=== PATIENT | male | born 2000 | race Caucasian/White ===

== ENCOUNTER 2022-10-10 15:23 | Observation (INO) | payer OTHER ==
[2022-10-10] MEDS ORDERED: LORazepam 2 MG/ML INJ IV STA ×2 (17:01→17:14)
[2022-10-10] MEDS ORDERED: SODIUM CHLORIDE 0.9% 1,000 ML IV ONE (17:04)
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
[2022-10-10] MEDS: SODIUM CHLORIDE 0.9% 1,000 ML IV SCH (17:16)
[2022-10-10 17:32] LABS: Basophils % (A) 0 %; Eosinophils # (A) 0.2 k/uL (0-0.7); Eosinophils % (A) 3 %; HCT 44.3 % (39.0-53.0); HGB 14.8 gm/dL (13.0-17.5); Lymphocytes # (A) 1.7 k/uL (1.0-4.8); Lymphocytes % (A) 25 %; MCH 28.8 pg (25.0-35.0); MCHC 33.4 g/dL (31.0-37.0); MCV 86.2 fL (80.0-100.0); Mean Platelet Volume 8.4; Monocytes # (A) 0.5 k/uL (0-1.0); Monocytes % (A) 8 %; Neutrophils # (A) 4.1 k/uL (1.3-7.7); Neutrophils % (A) 63 %; Platelet Count 219 k/uL (150-450); RBC 5.14 m/uL (4.30-5.90); RDW 12.5 % (11.5-15.5); WBC 6.6 k/uL (3.8-10.6)
[2022-10-10 17:41] LABS: ALT 54 U/L (4-49); AST 36 U/L (17-59); Acetaminophen <10.0 ug/mL; African American GFR (CKD) >90 (>60 ml/min/1.73 sqM); Albumin 4.7 g/dL (3.5-5.0); Alkaline Phosphatase 46 U/L (38-126); Anion Gap 12 mmol/L; Blood Urea Nitrogen 3 mg/dL (9-20); Calcium 9.6 mg/dL (8.4-10.2); Carbon Dioxide 29 mmol/L (22-30); Chloride 102 mmol/L (98-107); Glucose 94 mg/dL (74-99); Non-African American GFR(CKD) >90 (>60 ml/min/1.73 sqM); Potassium 3.9 mmol/L (3.5-5.1); Sodium 143 mmol/L (137-145); Total Bilirubin 0.7 mg/dL (0.2-1.3); Total Protein 7.6 g/dL (6.3-8.2)
[2022-10-10 17:44] LABS: Appearance,Urine Clear (Clear); Bilirubin,Urine Negative (Negative); Blood,Urine Negative (Negative); Color,Urine Light Yellow; Glucose,Urine (UA) Negative (Negative); Ketones,Urine Negative (Negative); Leukocyte Esterase,Urine Trace (Negative); Nitrite,Urine Negative (Negative); PH, Urine 7.5 (5.0-8.0); Protein,Urine Negative (Negative); RBC,Urine <1 /hpf (0-5); Specific Gravity,Urine 1.003 (1.001-1.035); Urobilinogen,Urine <2.0 mg/dL (<2.0); WBC,Urine 5 /hpf (0-5)
[2022-10-10 18:04] LABS: Amphetamine Screen,Urine Not Detected (NotDetected); Barbiturate Screen,Urine Not Detected (NotDetected); Benzodiazepines Screen,Urine Detected (NotDetected); Cocaine Screen,Urine Not Detected (NotDetected); Methadone Screen, Urine Not Detected (NotDetected); Opiate Screen,Urine Not Detected (NotDetected); Oxycodone Screen, Urine Not Detected (NotDetected); Phencyclidine Screen,Urine Not Detected (NotDetected); Tricyclic Antidepressant,Urine Detected (NotDetected); Urn Cannabinoid Scrn Detected (NotDetected)
[2022-10-10] MEDS ORDERED: LORazepam 2 MG/ML INJ IV PRN (19:08)
[2022-10-10] MEDS ORDERED: THIAMINE 100 MG/ML 2 ML VIAL IM STA (19:08)
[2022-10-10] MEDS ORDERED: NALOXONE 0.4 MG/ML 1 ML VIAL IV PRN (19:27)
[2022-10-10] MEDS ORDERED: LORazepam 1 MG TAB PO PRN ×3 (23:24)
[2022-10-10] MEDS ORDERED: LORazepam 0.5 MG TAB PO PRN (23:24)
[2022-10-10] MEDS ORDERED: ACETAMINOPHEN TAB 325 MG TAB PO PRN (23:25)
[2022-10-10] MEDS ORDERED: ONDANSETRON 4 MG/2 ML VIAL IVP PRN (23:25)
[2022-10-11] MEDS ORDERED: PANTOPRAZOLE 40 MG TABLET PO SCH (07:30)
[2022-10-11] MEDS: LORazepam 1 MG TAB PO PRN ×6 (08:16→21:36)
[2022-10-11] MEDS: THIAMINE 100 MG TAB PO SCH (09:30)
[2022-10-11] MEDS: MULTIVITAMINS, THERA 1 EACH TAB PO SCH (09:30)
[2022-10-11] MEDS: FOLIC ACID 1 MG TAB PO SCH (09:30)
[2022-10-11] MEDS: SODIUM CHLORIDE 0.9% 1,000 ML IV SCH (09:39)
[2022-10-11] MEDS ORDERED: traZODone HCL 100 MG TAB PO PRN (13:41)
--- NOTE | 2022-10-11 13:41 | P.HPIM ---
History of Present Illness 22-year-old male came in with compensative nausea vomiting epigastric abdominal discomfort patient does have alcohol abuse history and opiate abuse history. Patient was sent in from a drug rehabitation program as patient was unable to urinate patient is able to urinate now presently doesn't have severe withdrawals but still having nausea from the alcoholic gastritis. Patient denied any fever chills. Patient the is on benzodiazepine and Suboxone for alcohol and opiate withdrawals respectively as an outpatient. Patient last received Ativan was more than 4 hours ago. His last alcohol drink was 4 days ago REVIEW OF SYSTEMS: CONSTITUTIONAL: No fever, no malaise, no fatigue. HEENT: No recent visual problems or hearing problems. Denied any sore throat. CARDIOVASCULAR: No chest pain, orthopnea, PND, no palpitations, no syncope. PULMONARY: No shortness of breath, no cough, no hemoptysis. GASTROINTESTINAL: As mentioned in HPI NEUROLOGICAL: No headaches, no weakness, no numbness. HEMATOLOGICAL: Denies any bleeding or petechiae. GENITOURINARY: Denies any burning micturition, frequency, or urgency. MUSCULOSKELETAL/RHEUMATOLOGICAL: Denies any joint pain, swelling, or any muscle pain. ENDOCRINE: Denies any polyuria or polydipsia. The rest of the 14-point review of systems is negative. PHYSICAL EXAMINATION: GENERAL: The patient is alert and oriented x3, not in any acute distress. Well developed, well nourished. HEENT: Pupils are round and equally reacting to light. EOMI. No scleral icterus. No conjunctival pallor. Normocephalic, atraumatic. No pharyngeal erythema. No thyromegaly. CARDIOVASCULAR: S1 and S2 present. No murmurs, rubs, or gallops. PULMONARY: Chest is clear to auscultation, no wheezing or crackles. ABDOMEN: Soft, nontender, nondistended, normoactive bowel sounds. No palpable organomegaly. MUSCULOSKELETAL: No joint swelling or deformity. EXTREMITIES: No cyanosis, clubbing, or pedal edema. NEUROLOGICAL: Gross neurological examination did not reveal any focal deficits. SKIN: No rashes. Assessment and plan Alcoholic gastritis: Patient was started on Protonix twice a day along with Zofran will start him on diet advance as tolerated. Patient will be monitored here because of continued nausea and continued abdominal discomfort -Alcohol withdrawal for which patient will be monitored for withdrawals and patient will be on CIWA protocol I don't expect much of withdrawals as patient last drink was 4 days ago -Opiate abuse patient will be resumed on Suboxone -PTSD history DVT prophylaxis: Lovenox Past Medical History Past Medical History: Seizure Disorder History of Any Multi-Drug Resistant Organisms: None Reported Past Surgical History: No Surgical Hx Reported Past Psychological History: ADD/ADHD, Anxiety, Depression, PTSD Smoking Status: Vaper Past Alcohol Use History: Abuse Past Drug Use History: Opiates Medications and Allergies Home Medications Medication Instructions Recorded Confirmed Type Buprenorphine/Naloxone 8Mg/2Mg 1 film SL TID 10/10/22 10/10/22 History [Suboxone 8-2Mg Film] Fluticasone/Umeclidin/Vilanter 1 puff INHALATION RT-DAILY 10/10/22 10/10/22 History [Trelegy Ellipta 100-62.5-25] Naloxone HCl [Narcan] 4 mg NASAL ONCE PRN 10/10/22 10/10/22 History Ondansetron Odt [Zofran ODT] 4 mg PO Q8HR PRN 10/10/22 10/10/22 History QUEtiapine FUMARATE [SEROquel] 300 mg PO HS 10/10/22 10/10/22 History QUEtiapine [SEROquel] 200 mg PO DAILY 10/10/22 10/10/22 History Sertraline [Zoloft] 100 mg PO DAILY 10/10/22 10/10/22 History busPIRone HCL 15 mg PO TID 10/10/22 10/10/22 History clonazePAM [KlonoPIN] 1 mg PO QID 10/10/22 10/10/22 History traZODone HCL 300 mg PO HS PRN 10/10/22 10/10/22 History Pantoprazole Sodium [Protonix] 20 mg PO AC-BID #30 tab 10/11/22 Rx Allergies Allergy/AdvReac Type Severity Reaction Status Date / Time ibuprofen Allergy Rash/Hives Verified 10/10/22 22:17 Physical Exam Vitals: Vital Signs Temp Pulse Resp BP BP Pulse Ox 10/11/22 08:40 97.9 F 22 132/86 97 10/11/22 04:37 58 L 16 99/75 95 10/11/22 02:39 72 16 106/70 10/11/22 00:06 82 16 110/73 10/10/22 23:05 92 18 102/68 100 10/10/22 21:30 90 18 105/70 100 10/10/22 18:23 89 16 129/99 10/10/22 17:25 99 18 132/102 100 10/10/22 15:25 98.6 F 116 H 18 142/91 98 Intake and Output 10/10/22 10/11/22 10/11/22 22:59 06:59 14:59 Other: # Voids 1 Weight 81.647 kg 81.647 kg Results CBC & Chem 7: 10/10/22 17:11 10/10/22 17:11 Labs: Abnormal Lab Results - Last 24 Hours (Table) 10/10/22 10/10/22 Range/Units 17:11 17:11 BUN 3 L (9-20) mg/dL ALT 54 H (4-49) U/L Ur Leukocyte Esterase Trace H (Negative) U Tricyclic Antidepress Detected H (NotDetected) U Benzodiazepines Scrn Detected H (NotDetected) U Marijuana (THC) Screen Detected H (NotDetected)
[2022-10-11] MEDS: busPIRone HCl 5 MG TAB PO SCH ×2 (16:33→21:31)
[2022-10-11] MEDS: QUEtiapine 200 MG TAB PO SCH (16:34)
[2022-10-11] MEDS: NON FORMULARY DRUG (Buprenorphine/Naloxone 8mg/2mg 1 EACH Film) SUBLINGUAL SCH ×2 (16:35→21:25)
[2022-10-11] MEDS: PANTOPRAZOLE 40 MG TABLET PO SCH (16:40)
[2022-10-11] MEDS ORDERED: QUEtiapine 100 MG TAB PO SCH (21:00)
[2022-10-11 22:41] LABS: Glucose,Whole Blood 128 mg/dL (70-110)
[2022-10-11] MEDS ORDERED: clonazePAM 1 MG TAB PO STA (22:42)
[2022-10-12] MEDS: LORazepam 1 MG TAB PO PRN ×4 (00:07→12:52)
[2022-10-12] MEDS: SODIUM CHLORIDE 0.9% 1,000 ML IV SCH ×2 (01:39→06:42)
[2022-10-12 03:34] VITALS: RESP 18; TEMP 98.4
[2022-10-12] MEDS: PANTOPRAZOLE 40 MG TABLET PO SCH (06:42)
[2022-10-12] MEDS ORDERED: SYMBICORT 80-4.5 MCG INHALER INHALATION SCH (08:00)
[2022-10-12] MEDS ORDERED: NON FORMULARY DRUG (Fluticasone/Umeclidin/Vilanter [Trelegy Ellipta 100-62.5-25] 1 EACH Bl INHALATION SCH (08:00)
[2022-10-12] MEDS: IPRATROPIUM 0.5 MG/2.5 ML NEBU INHALATION SCH ×3 (08:12→15:40)
[2022-10-12] MEDS: busPIRone HCl 5 MG TAB PO SCH ×2 (08:20→15:23)
[2022-10-12] MEDS: FOLIC ACID 1 MG TAB PO SCH (08:20)
[2022-10-12] MEDS: MULTIVITAMINS, THERA 1 EACH TAB PO SCH (08:20)
[2022-10-12] MEDS: THIAMINE 100 MG TAB PO SCH (08:20)
[2022-10-12] MEDS: QUEtiapine 200 MG TAB PO SCH (08:20)
[2022-10-12] MEDS ORDERED: SERTRALINE 100 MG TAB PO SCH (09:00)
[2022-10-12] MEDS: NON FORMULARY DRUG (Buprenorphine/Naloxone 8mg/2mg 1 EACH Film) SUBLINGUAL SCH (10:17)
[2022-10-12] MEDS ORDERED: DOCUSATE 100 MG CAP PO SCH (11:45)
[2022-10-12 12:39] VITALS: BP 116/73
[2022-10-12 16:09] VITALS: PULSE 90
--- NOTE | 2022-10-13 17:01 | P.DS ---
Providers Date of admission: 10/10/22 19:28 Expected date of discharge: 10/12/22 Attending physician: Real Griggs Primary care physician: Stated None Hospital Course: Final diagnosis -Alcoholic gastritis -Alcohol withdrawal -Opiate abuse history -PTSD history -DVT prophylaxis -GI prophylaxis -Full code Discharge disposition Patient is being discharged in a stable condition with guarded prognosis to [facility] for continued alcohol rehab. Patient will follow-up with [facility] and instructed to follow-up with primary care provider to establish in the outpatient setting upon discharge. Patient is to continue with Librium taper as scheduled. Total time taken is greater than 35 minutes. Hospital course This is a 22-year-old male who [facility] along with nausea and vomiting and gastritis most likely related to alcohol use. Patient was maintained on CIWA protocol and started on Librium taper and will be discharged on a Librium taper and returning back to [facility] rehab. Patient encouraged to follow-up and establish with a primary care provider other than psychiatrist in the outpatient setting. Resources were provided. Currently no reports of chest pain, shortness of breath, or palpitations. Patient is afebrile. No reports of nausea or vomiting and patient is tolerating diet. Patient will be going to [facility] today. Physical exam: Gen: This is a 22-year-old male who is awake, alert and oriented 3, well- developed, well-nourished HEENT: Head is atraumatic, normocephalic. Pupils equal, round. Sclerae is anicteric. NECK: Supple. No JVD. No lymphadenopathy. No thyromegaly. LUNGS: Clear to auscultation. No wheezes or rhonchi. No intercostal retractions. HEART: Regular rate and rhythm. No murmur. ABDOMEN: Soft. Bowel sounds are present. No masses. No tenderness. EXTREMITIES: No pedal edema. No calf tenderness. NEUROLOGICAL: Patient is awake, alert and oriented x3. Cranial nerves 2 through 12 are grossly intact. Please refer to medication reconciliation sheet for a list of medications. The impression and plan of care has been dictated by Keyonna Muhammad, Nurse Practitioner as directed. Dr. Allan MD I have performed a history and examination and MDM of this patient, discussed the same with the dictator, and agree with the dictator's assessment and plan as written ,documented as a scribe. Based on total visit time, I have performed more than 50% of the visit. Patient Condition at Discharge: Stable Plan - Discharge Summary Discharge Rx Participant: Yes New Discharge Prescriptions: New Pantoprazole Sodium [Protonix] 20 mg PO AC-BID #30 tab Multivitamins, Thera [Multivitamin (formulary)] 1 each PO DAILY #30 tab Docusate [Colace] 100 mg PO BID cap Folic Acid 1 mg PO DAILY #30 tab chlordiazePOXIDE HCl [Librium] 10 mg PO TID #6 cap Thiamine [Vitamin B-1] 100 mg PO DAILY #30 tab Continue Ondansetron Odt [Zofran ODT] 4 mg PO Q8HR PRN PRN Reason: Nausea Naloxone HCl [Narcan] 4 mg NASAL ONCE PRN PRN Reason: OVERDOSE Fluticasone/Umeclidin/Vilanter [Trelegy Ellipta 100-62.5-25] 1 puff INHALATION RT-DAILY clonazePAM [KlonoPIN] 1 mg PO QID Sertraline [Zoloft] 100 mg PO DAILY traZODone HCL 300 mg PO HS PRN PRN Reason: SLEEP QUEtiapine FUMARATE [SEROquel] 300 mg PO HS Buprenorphine/Naloxone 8Mg/2Mg [Suboxone 8-2Mg Film] 1 film SL TID busPIRone HCL 15 mg PO TID QUEtiapine [SEROquel] 200 mg PO DAILY Discharge Medication List Buprenorphine/Naloxone 8Mg/2Mg [Suboxone 8-2Mg Film] 1 film SL TID 10/10/22 [History] Fluticasone/Umeclidin/Vilanter [Trelegy Ellipta 100-62.5-25] 1 puff INHALATION RT-DAILY 10/10/22 [History] Naloxone HCl [Narcan] 4 mg NASAL ONCE PRN 10/10/22 [History] Ondansetron Odt [Zofran ODT] 4 mg PO Q8HR PRN 10/10/22 [History] QUEtiapine FUMARATE [SEROquel] 300 mg PO HS 10/10/22 [History] QUEtiapine [SEROquel] 200 mg PO DAILY 10/10/22 [History] Sertraline [Zoloft] 100 mg PO DAILY 10/10/22 [History] busPIRone HCL 15 mg PO TID 10/10/22 [History] clonazePAM [KlonoPIN] 1 mg PO QID 10/10/22 [History] traZODone HCL 300 mg PO HS PRN 10/10/22 [History] Pantoprazole Sodium [Protonix] 20 mg PO AC-BID #30 tab 10/11/22 [Rx] Docusate [Colace] 100 mg PO BID cap 10/12/22 [Rx] Folic Acid 1 mg PO DAILY #30 tab 10/12/22 [Rx] Multivitamins, Thera [Multivitamin (formulary)] 1 each PO DAILY #30 tab 10/12/22 [Rx] Thiamine [Vitamin B-1] 100 mg PO DAILY #30 tab 10/12/22 [Rx] chlordiazePOXIDE HCl [Librium] 10 mg PO TID #6 cap 10/12/22 [Rx] Follow up Appointment(s)/Referral(s): Jose Anglin MD [STAFF PHYSICIAN] - 1 Week [facility] [NON-STAFF] - 1 Week Activity/Diet/Wound Care/Special Instructions: Patient will return to [facility] at discharge. When d/c orders written call [phone] Ext [phone] and they will pick patient up. [facility] can only accept admissions in the morning over the weekend. Patient to establish with a primary care provider in the outpatient setting other than psychiatry Continue with medications as prescribed Follow-up with psychiatry outpatient Avoid all alcohol intake Discharge/Stand Alone Forms: AA Meetings [place], [facility] Resources, Outpatient Counseling, In Substance Abuse Facilities Discharge Disposition: OTHER INSTITUTION NOT DEFINED
== END 2022-10-12 16:31 | disposition other institution (70) ==
LOC: EC 15:23 → INTOOBSV 19:28 → 3SCARD 19:28
PROVIDERS: ADMIT Hospitalist; ATTEND Hospitalist
DX: K29.20 Alcoholic gastritis without bleeding (principal); F10.239 Alcohol dependence with withdrawal, unspecified; F11.10 Opioid abuse, uncomplicated; F43.10 Post-traumatic stress disorder, unspecified; G40.909 Epilepsy, unspecified, not intractable, without status epilepticus; F32.A Depression, unspecified; F90.9 Attention-deficit hyperactivity disorder, unspecified type; F41.9 Anxiety disorder, unspecified; Z79.51 Long term (current) use of inhaled steroids; Z79.899 Other long term (current) drug therapy; Z88.6 Allergy status to analgesic agent
CPT/HCPCS: 96361 ×3; 96372; 96374; 99285; 36415; 94640 ×2; 80053; 85025; 81001; 80306; 80143; G0378 ×3; J2060; J3411